=== PATIENT | female | born 1965 | race Two or more races ===

== ENCOUNTER → 2017-10-13 | Day surgery (SDC) | payer OTHER | END | disposition home or self-care (01) | LOC: CIR.AMB 07:24 | DX: N84.0 Polyp of corpus uteri (principal) ==

== ENCOUNTER → 2017-12-14 | Outpatient (CLI) | payer OTHER | END | disposition home or self-care (01) | LOC: SONOGRAMA 12:46 → MAMO-SONO 13:45 | DX: E04.1 Nontoxic single thyroid nodule (principal) ==

== ENCOUNTER → 2018-11-23 | Outpatient (CLI) | payer OTHER | END | disposition home or self-care (01) | LOC: SONOGRAMA 08:02 | DX: R10.2 Pelvic and perineal pain (principal) ==

== ENCOUNTER 2020-01-24 11:58 | Emergency (ER) | payer OTHER ==
[~2020-01-24] VITALS: Ht 167.6 cm; Wt 72.6 kg
[2020-01-24] MEDS ORDERED: XANAX0.25 MG PO (14:56)
== END 2020-01-24 15:22 | disposition home or self-care (01) ==
LOC: ER 11:58
DX: F41.8 Other specified anxiety disorders (principal); R20.2 Paresthesia of skin; R20.0 Anesthesia of skin; Z03.818 Encounter for observation for suspected exposure to other biological agents ruled out

== ENCOUNTER 2021-02-26 11:44 | Outpatient (CLI) | payer OTHER ==
[~2021-02-26 11:44] MED LIST: XANAX0.25 MG PO
== END 2021-02-26 11:52 | disposition home or self-care (01) ==
LOC: RAD 11:44
PROVIDERS: ATTEND Internal Medicine
DX: R07.89 Other chest pain (principal); Z00.00 Encounter for general adult medical examination without abnormal findings; E78.1 Pure hyperglyceridemia; Z13.29 Encounter for screening for other suspected endocrine disorder; Z87.891 Personal history of nicotine dependence; Z13.820 Encounter for screening for osteoporosis; E28.310 Symptomatic premature menopause; E55.9 Vitamin D deficiency, unspecified

== ENCOUNTER 2021-04-10 13:07 | Outpatient (CLI) | payer OTHER | END 2021-04-10 13:09 | disposition home or self-care (01) | LOC: NUCLEAR 13:07 | PROVIDERS: ATTEND Internal Medicine | DX: M81.0 Age-related osteoporosis without current pathological fracture (principal); Z13.820 Encounter for screening for osteoporosis ==

== ENCOUNTER 2021-09-15 10:56 | Outpatient (CLI) | payer OTHER | END 2021-09-15 11:21 | disposition home or self-care (01) | LOC: SONOGRAMA 10:56 | DX: Z13.29 Encounter for screening for other suspected endocrine disorder (principal); E28.310 Symptomatic premature menopause; E78.1 Pure hyperglyceridemia; E55.9 Vitamin D deficiency, unspecified; Z00.00 Encounter for general adult medical examination without abnormal findings; Z13.820 Encounter for screening for osteoporosis; Z87.891 Personal history of nicotine dependence; R10.2 Pelvic and perineal pain; R10.9 Unspecified abdominal pain ==

== ENCOUNTER 2022-05-07 15:49 | Outpatient (CLI) | payer OTHER | END 2022-05-08 15:59 | disposition home or self-care (01) | LOC: RAD 15:49 | PROVIDERS: ATTEND Internal Medicine | DX: J44.1 Chronic obstructive pulmonary disease with (acute) exacerbation (principal) ==

== ENCOUNTER 2022-09-11 14:47 | Emergency (ER) | payer OTHER ==
[~2022-09-11] VITALS: Ht 170.2 cm; Wt 59.4 kg
== END 2022-09-11 19:46 | disposition home or self-care (01) ==
LOC: ER 14:47
DX: R07.9 Chest pain, unspecified (principal)

== ENCOUNTER → 2023-02-03 | Outpatient (CLI) | payer OTHER | END | disposition home or self-care (01) | LOC: TOM 07:18 | PROVIDERS: ATTEND Internal Medicine Gastroenterology | DX: R10.9 Unspecified abdominal pain (principal); K51.20 Ulcerative (chronic) proctitis without complications; R10.84 Generalized abdominal pain; K59.00 Constipation, unspecified ==

== ENCOUNTER 2023-02-12 12:28 | Outpatient (CLI) | payer OTHER | END 2023-02-12 12:34 | disposition home or self-care (01) | LOC: SONOGRAMA 12:28 | DX: K76.0 Fatty (change of) liver, not elsewhere classified (principal) ==

== ENCOUNTER 2024-10-03 11:50 | Outpatient (CLI) | payer OTHER | END 2024-10-03 11:58 | disposition home or self-care (01) | LOC: TOM 11:50 | PROVIDERS: ATTEND Internal Medicine Gastroenterology | DX: K51.20 Ulcerative (chronic) proctitis without complications (principal); R10.9 Unspecified abdominal pain ==

== ENCOUNTER 2025-06-05 14:31 | Emergency (ER) | payer OTHER ==
[~2025-06-05] VITALS: Ht 167.6 cm; Wt 59.0 kg
[2025-06-05] MEDS ORDERED: ONDANSETRON HCL 2 MG/ML VIAL IV STA (15:49)
[2025-06-05] MEDS ORDERED: FAMOTIDINE/PF 20 MG/2 ML VIAL IV STA (15:49)
[2025-06-05] MEDS ORDERED: 0.9 % SODIUM CHLORIDE 1,000 ML IV STA (15:49)
[2025-06-05] MEDS ORDERED: METOCLOPRAMIDE HCL 10 MG in DEXTROSE 5 % IN WATER 50 ML IV ONE (16:00)
[2025-06-05] MEDS ORDERED: METOCLOPRAMIDE HCL 5 MG/ML VIAL ONE ×2 (16:57→16:58)
[2025-06-05] MEDS ORDERED: FAMOTIDINE/PF 20 MG/2 ML VIAL ONE (16:57)
[2025-06-05 18:11] LABS: BASO % 0.8 % (0.1-1.2); EOS # 0.17 (0.04-0.54); EOS % 3.3 % (0.7-7.0); LYMPH # 1.35 (1.18-3.74); LYMPH % 25.8 % (19.3-53.1); MEAN PLATELET VOLUME 11.00 fl (9.4-12.4); MONO # 0.34 (0.24-0.82); MONO % 6.5 % (4.7-12.5); NEUT # 3.32 (1.56-6.13); NEUT % 63.4 % (34.0-71.1); RED CELL DISTRIBUTION WIDTH 12.9 % (11.6-14.4)
[2025-06-05 18:47] LABS: BUN CREA RATIO 24.0 (7.0-25.0); CREATININE SERUM 0.74 mg/dL (0.55-1.02); GFR 79.78; GLUCOSE FASTING 105.0 mg/dL (65-100); OSMOLALITY SERUM 282.0 MOSM/KG (275-295)
[2025-06-05 19:00] LABS: URINE APPEARANCE Clear; URINE BILIRRUBIN Negative (NEGATIVE); URINE BLOOD Large; URINE COLOR Yellow; URINE GLUCOSE Negative (NEGATIVE); URINE KETONE Negative (NEGATIVE); URINE LEUKOCYTE Moderate; URINE NITRATE Negative; URINE PROTEIN Negative (NEGATIVE); URINE UROBILINOGEN 0.2 E.U./dl
[2025-06-05 19:05] LABS: URINE BACTERIA 45.5 uL (0.0-1933); URINE EPITHELIAL CELLS 6.4 uL (0.0-38.8); URINE RBC 927.3 uL (0.0-20.8); URINE WBC 204.4 uL (0.0-23.2)
[2025-06-05 19:11] LABS: URINE CAST 0.00 uL (0.0-1.40)
[2025-06-05] MEDS ORDERED: PEPCID AC20 MG PO (19:15)
[2025-06-05] MEDS ORDERED: CIPRO500 MG PO (19:15)
== END 2025-06-05 21:13 | disposition home or self-care (01) ==
LOC: ER 14:31
PROVIDERS: General Practice
DX: N39.0 Urinary tract infection, site not specified (principal); R19.7 Diarrhea, unspecified